=== PATIENT | female | born 1995 | race Caucasian/White ===

== ENCOUNTER → 2024-07-07 10:19 | Outpatient (CLI) | payer OTHER, SELFPAY | PROVIDERS: Visit Provider Physician Assistant | DX: R39.9 Unspecified symptoms and signs involving the genitourinary system (principal) | CPT/HCPCS: 87077; 87086; 87147 ==

== ENCOUNTER → 2024-08-09 11:03 | Outpatient (CLI) | payer OTHER, SELFPAY ==
[2024-08-09 14:34] LABS: Urine N gonorrhoeae NOT DETECTED
[2024-08-09 14:35] LABS: Urine Chlamydia NOT DETECTED
== END ==
LOC: LAB 11:05
PROVIDERS: PCP Nurse Practitioner; Visit Provider Student in an Organized Health Care Education/Training Program
DX: Z34.01 Encounter for supervision of normal first pregnancy, first trimester (principal)
CPT/HCPCS: 87491; 87591

== ENCOUNTER 2024-08-24 10:35 | Day surgery (SDC) | payer OTHER, SELFPAY ==
[2024-08-20 09:32] VITALS: BMI 32.1
--- NOTE | 2024-08-24 | PATH_ITS ---
[facility] Accession Number: [id number] No. of containers..01 Tissue . 01 Material submitted: . product of conception - PRODUCTS OF CONCEPTION . 01 Diagnosis: PRODUCTS OF CONCEPTION: Products of conception identified. Additional evaluation pending to assess for molar gestation; results will be reported as an addendum. MRV 08/30/2024 1615 Local . 01 Electronically signed: . Hiwot Easlye MD, Pathologist NPI- [id number] . 01 Gross description: . Received in formalin with two identifiers and products of conception, are multiple angulo spongy to membranous soft tissue fragments admixed with mucohemorrhagic material aggregating to 5.7 x 5.3 x 1.4 cm with no tissue identified. [employer] Milling Supervisor sections are submitted in A1-A2. ([id number]) /MRV 08/25/2024 1843 Local . 01 Pathologist provided ICD-10: O02.1 . 01 CPT . 356909 Specimen Comment: A courtesy copy of this report has been sent to [facility] Pathology Performed at: [address] [address], [place], [place] [id number] MD Kavin Barron MD Phone: [phone]
[2024-08-24] MEDS: LACTATED RINGERS 1,000 ML 42 ML IV (10:50)
[2024-08-24] MEDS: SCOPOLAMINE 1 PATCH TOP (10:55)
[2024-08-24] MEDS: FAMOTIDINE 20 MG/2 ML VIAL IV (10:57)
[2024-08-24 11:03] VITALS: BP 123/77; PULSE 97; RESP 17; TEMP 36.8; O2SAT 100; BMI 31.4
--- NOTE | 2024-08-24 11:45 | PM.GYNHP.1 ---
History of Present Illness History of Present Illness Reason for admission: missed Narrative: Abdulkadir Regan is a 29 year old female [id number] with diagnosed missed in clinic, desiring surgical management. She denies any vaginal bleeding. 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) Abnormal Pap smear of cervix Premature delivery Surgical History (Updated 07/26/24 @ 13:06 by Polly Jacques RN) [place] teeth removed (10/23/15) History of knee surgery (03/18/12) History of appendectomy (12/08/13) [place] teeth extracted (~2015) Family History (Updated 07/26/24 @ 13:17 by Polly Jacques RN) Mother Age: 63 Skin cancer Asthma Father Diabetes mellitus Hypertension Lung cancer Grandmother Dementia Breast cancer Grandfather Heart attack Hypertension Grandmother Colon cancer Dementia Breast cancer Stroke Son Age: 4y 6m Autism Eczema Allergies Social History marital status: number of children: 1 household members: spouse and children lives independently: Yes caregiver/support person: Yes housing: [facility] ([employer]) pets and animals: Yes (dogs) education level: college (bachelor's degree) occupational status: employed ([employer]) current occupational exposures/hazards: No special ernesto needs: No travel history: over 6 months ago seatbelt use: always water heater temp set < 120 deg: Yes working smoke detector in home: Yes fire extinguisher in home: Yes carbon monox detector in home: Yes firearms in home: No do you feel safe at home: Yes Smoking Status: Never smoker second hand exposure: No alcohol intake: former substance use type: marijuana (edibles, but not while /) during the past year weight has: increased > 10 lbs well-balanced diet: rarely or never daily servings fruits/ve-1 (1-2) caffeine: Yes (very conscious, max 120mg/day) Type(s) of exercise: walking and other (standing all day at work) Meds Home Medications and Allergies Home Medications ?Medication ?Instructions ?Recorded ?Confirmed ?Type certolizumab pegol 400 mg/2 mL 400 mg SUBCUT Q4W 07/21/24 08/24/24 History (200 mg/mL x2) subcutaneous syringe kit (Cimzia) gabapentin 300 mg capsule 300 mg PO DAILY 07/21/24 08/24/24 History [id number] 400 mcg-om3 35 mg-dha 25 tab PO 07/26/24 07/26/24 History mg-epa 5 mg-fish oil chewable tablet Allergies Allergy/AdvReac Type Severity Reaction Status Date / Time Sulfa (Sulfonamide Allergy Intermediate Swelling Verified 08/24/24 10:59 Antibiotics) of Lip/Tongue/Throat banana Allergy Mild ITCHING Verified 08/24/24 10:59 Review of Systems Review of Systems ROS: Yes All systems reviewed with the patient and are negative except as otherwise documented Exam Vital Signs (past 8 hours): - 08/24/24 11:03 Temperature 98.2 F Pulse Rate 97 H Respiratory Rate 17 Blood Pressure 123/77 Pulse Oximetry 100 Oxygen Delivery Method Room Air Oxygen Delivery Method Room Air Const General: healthy appearing, comfortable and No acute distress Resp Effort & Inspection: normal respiratory effort and able to speak in complete sentences Skin General: no rashes or lesions noted Neuro Cognition: normal cognition Speech: speech normal Extrem General: normal to inspection Psych Mood: congruent mood Affect: normal affect Assessment & Plan Assessment and plan (1) Missed : Status: Acute Assessment & Plan narrative: 29yo [id number] with diagnosed missed , here for surgical management with suction D&C. We reviewed postop expectations, as well as risk/benefits of the proposed procedure and signed the surgical consent today. -200mg PO doxycycline for ppx -plan for same day surgery Surgery consent We discussed the risks/benefits/alternatives to the proposed procedure, to include but not limited to: -risk of bleeding, requiring medications, blood products, or other procedures as indicated -risk of infection, requiring prolonged hospital stay or other procedures -risk of injury to other structures, including bowel, bladder, blood vessels, nerves, etc. which may also require additional procedures -risk of adverse reaction to anesthesia or medications -risk of venous thromboembolism and associated sequelae -risk of rare complications such as cardiac arrest, or extremely rarely, Patient is aware of the risks, and desires to proceed with planned surgical procedure. Time-Based Coding :: [20min] spent with patient and on the chart (including review of chart, obtaining history, exam, reviewing outside data, placing orders, documenting exam and treatment plan, and counseling patient) on [08/24/24].
[2024-08-24] MEDS: DOXYCYCLINE HYCLATE 100 MG TABLET 200 MG PO (11:48)
[2024-08-24] MEDS: ACETAMINOPHEN IV 1,000 MG/100 ML VIAL 400 MG IV (12:10)
--- NOTE | 2024-08-24 12:14 | SUR.OPER ---
Lithotomy on padded OR bed, head on pillow, arms secured on padded arm boards at <90 degrees abduction. Legs secured in padded yellow fins stirrups.
[2024-08-24] MEDS: SILVER NITRATE STICK 2 EACH TOP ×3 (12:20→12:23)
[2024-08-24 12:31] VITALS: BP 104/64; PULSE 89; RESP 13; TEMP 36.3; O2SAT 96
--- NOTE | 2024-08-24 12:31 | P.OP_ITS ---
Operative Date/Time/Diagnoses Date of procedure: 08/24/24 Time of procedure: 12:00 Pre-op diagnosis: Missed Post-op diagnosis: same Procedure & Clinicians Procedure: Suction dilation and curettage Same procedure as scheduled: Yes Indications: 29yo [id number] with missed , desiring surgical management. Surgeon: Shakila Taveras Click Yes if Unassisted: Yes Anesthesia Type: General Operative Notes Findings: Moderate amount of tissue obtained. Minimal uterine bleeding noted at the end of the case. Specimen(s): other (products of conception) Estimated Blood Loss (mL): 10 Blood products transfused: none Procedure in detail: The risks, benefits, indications and alternatives of the procedure were reviewed with the patient and informed consent was obtained. She received 200mg doxycycline PO preoperatively for prophylaxis. The pt was taken to the operating room where general anesthesia was obtained without difficulty. The pt was then placed in the low lithotomy position using gel-padded Juan Pablo Stirrups. SCDs were placed bilaterally for VTE prophylaxis. The pt was then prepped and draped in the sterile fashion. A sterile speculum was placed in the patient?s vagina and the cervix was visualized.? A single tooth tenaculum was used to grasp the anterior lip of the cervix. The cervix was then gently, serially dilated to a size 7mm Hegar dilator. A 7mm curved suction catheter was then introduced into the uterine cavity and gently advanced to the uterine fundus. The suction device was then activated to 60mmHg and the catheter was rotated to clear the uterus of products of conception. Several passes were performed with a moderate amount of tissue obtained. A gentle, sharp curettage was then performed until a gritty texture was noted. All tissue was sent to pathology for review. The single tooth tenaculum was then removed from the anterior lip of the cervix. The tenaculum sites were noted to be hemostatic with direct pressure and silver nitrate. All instruments were then removed from the patient?s vagina. At the completion of the case the sponge and needle counts were correct x 2. The patient tolerated the procedure well and was taken to the PACU in stable condi tion. Complications: none Post-operative Condition: stable Disposition: PACU Plan for aftercare: Discharge to home once meeting discharge criteria.
[2024-08-24 12:36] VITALS: BP 98/56; PULSE 89; RESP 14; O2SAT 96
[2024-08-24 12:40] VITALS: BP 103/62; PULSE 79; RESP 15; O2SAT 97
[2024-08-24 12:46] VITALS: BP 106/68; PULSE 78; RESP 15; O2SAT 97
[2024-08-24 12:53] VITALS: BP 111/84; PULSE 81; RESP 13; TEMP 36.4; O2SAT 98
== END 2024-08-24 13:55 | disposition home or self-care (01) ==
PROVIDERS: PCP Nurse Practitioner; Referring Provider Student in an Organized Health Care Education/Training Program; Visit Provider Student in an Organized Health Care Education/Training Program
PROC: (CPT 58120; principal; 2024-08-24 12:00)
DX: O02.1 Missed abortion (principal)
CPT/HCPCS: 59820; J0131; J1100; J1885; J2250; J2405; J2704; J3010

== ENCOUNTER 2024-08-26 20:01 | Emergency (ER) | payer OTHER, SELFPAY ==
--- NOTE | 2024-08-26 20:21 | EKG_ITS ---
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
[2024-08-26 20:23] VITALS: BP 138/71; PULSE 85; RESP 16; TEMP 36.5; O2SAT 99; BMI 32.1
--- NOTE | 2024-08-26 20:29 | DI.RAD.S_ITS ---
PROCEDURE: XR CHEST 1V INDICATIONS: chest pain TECHNIQUE: One view of the chest was acquired. COMPARISON: None. FINDINGS AND IMPRESSION: No dense airspace disease or pleural effusions on this single view study. Normal heart size. Unremarkable osseous structures. Dictated by: Filiberto Galloway M.D. on 08/26/2024 at 21:00 Approved by: Filiberto Galloway M.D. on 08/26/2024 at 21:01
[2024-08-26 21:01] LABS: Add Manual Diff / Slide Review NO; Basophils Absolute Auto 100 /uL (0-100); Basophils Percent Auto 0.6 % (0-2); Eosinophils Absolute Auto 300 /uL (0-450); Eosinophils Percent Auto 2.4 % (2-4); Hematocrit 38.1 % (36-46); Lymphocytes Absolute Auto 4200 /uL (1100-4500); Lymphocytes Percent Auto 38.1 % (25-40); Mean Corpuscular HGB Conc 34.1 % (30-36); Mean Corpuscular Hemoglobin 30.5 PG (26-34); Mean Corpuscular Volume 89.5 fL (80-100); Monocytes Absolute Auto 600 /uL (0-900); Monocytes Percent Auto 5.6 % (3-14); Neutrophils Absolute Auto 5900 /uL (1500-7000); Neutrophils Percent Auto 53.3 % (50-75); Platelet Count 250 X10^3/uL (150-400); Red Blood Cell Count 4.26 X10^6/uL (4.0-5.2); Red Cell Distribution Width 13.4 % (11.6-14.8)
[2024-08-26 21:02] LABS: Alanine Aminotransferase 18 IU/L (<35); Albumin 4.2 g/dL (3.5-5.0); Albumin Globulin Ratio 1.4 (1.0-2.8); Alkaline Phosphatase 69 U/L (38-126); Aspartate Aminotransferase 23 IU/L (14-36); BUN Creatinine Ratio 24.3 (6-22); Bilirubin Total 0.4 mg/dL (0.2-1.3); Blood Urea Nitrogen 17 mg/dL (7-17); Carbon Dioxide 26 mmol/L (22-32); Chloride 105 mmol/L (98-107); Creatine Kinase 48 U/L (30-135); Estimated Glomerular Filt Rate > 60 mL/min (>60); Glucose 99 mg/dL (70-99); HEMOLYSIS < 15 (0-50); Lipase 55 U/L (23-300); Potassium 3.8 mmol/L (3.4-5.1); Sodium 138 mmol/L (137-145); Total Protein 7.2 g/dL (6.3-8.2)
[2024-08-26 21:14] LABS: Troponin I < 0.012 ng/mL (0.01-0.034)
[2024-08-26 22:11] VITALS: BP 116/74; PULSE 78; RESP 20; TEMP 36.6; O2SAT 100
[2024-08-26 23:21] VITALS: BP 115/73; PULSE 70; RESP 16; O2SAT 100
[2024-08-26 23:51] LABS: Troponin I < 0.012 ng/mL (0.01-0.034)
[2024-08-27 01:22] VITALS: BP 120/68; PULSE 74; RESP 16; O2SAT 100
--- NOTE | 2024-08-27 02:39 | ED.CHESTPAIN ---
HPI - Chest Pain General Chief Complaint: Chest Pain Stated Complaint: Chest pain dnc x 2 days ago Time Seen by Provider: 08/27/24 02:12 Source: patient Mode of arrival: Ambulatory Limitations: no limitations History of Present Illness HPI narrative: 29-year-old female complaint of chest pain started at 9:30 a.m. described as squeezing. Episodes last about 2 minutes and feel short of breath during the episode. Has been all day eating seems to make it worse but does not have any funny taste in her mouth. Can sometimes be worse with deep inhalation but not always. No shortness a breath at baseline. No fevers. No nausea or vomiting. No syncope. Some mild constipation but having bowel movements no urinary symptoms no swelling in extremities. Patient has had Advil 800 mg without any improvement. Had a D&C on Friday. 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 Describes it allergy to sulfa. States prior knee surgery and had prior D&C. Does not take any estrogen. No tobacco, alcohol or recreational drugs. She does follow up with rheumatology Related Data Home Medications ?Medication ?Instructions ?Recorded ?Confirmed certolizumab pegol 400 mg/2 mL 400 mg SUBCUT Q4W 07/21/24 08/24/24 (200 mg/mL x2) subcutaneous syringe kit (Cimzia) gabapentin 300 mg capsule 300 mg PO DAILY 07/21/24 08/24/24 [id number] 400 mcg-om3 35 mg-dha 25 tab PO 07/26/24 07/26/24 mg-epa 5 mg-fish oil chewable tablet Allergies Allergy/AdvReac Type Severity Reaction Status Date / Time Sulfa (Sulfonamide Allergy Intermediate Swelling Verified 08/26/24 20:23 Antibiotics) of Lip/Tongue/Throat banana Allergy Mild ITCHING Verified 08/26/24 20:23 Review of Systems Review of Systems ROS Unobtainable: All systems reviewed & are unremarkable except as noted in HPI and below Patient History Medical History anxiety 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) Abnormal Pap smear of cervix Premature delivery Surgical History [place] teeth removed (10/23/15) History of knee surgery (03/18/12) History of appendectomy (12/08/13) [place] teeth extracted (~2015) Family History Mother Age: 63 Skin cancer Asthma Father Diabetes mellitus Hypertension Lung cancer Grandmother Dementia Breast cancer Grandfather Heart attack Hypertension Grandmother Colon cancer Dementia Breast cancer Stroke Son Age: 4y 6m Autism Eczema Allergies Social History marital status: number of children: 1 household members: spouse and children lives independently: Yes caregiver/support person: Yes housing: condominium ([facility] [place]) pets and animals: Yes (dogs) education level: college (bachelor's degree) occupational status: employed ([employer]) current occupational exposures/hazards: No special ernesto needs: No travel history: over 6 months ago seatbelt use: always water heater temp set < 120 deg: Yes working smoke detector in home: Yes fire extinguisher in home: Yes carbon monox detector in home: Yes firearms in home: No do you feel safe at home: Yes Smoking Status: Never smoker second hand exposure: No alcohol intake: former substance use type: marijuana (edibles, but not while /) during the past year weight has: increased > 10 lbs well-balanced diet: rarely or never daily servings fruits/ve-1 (1-2) caffeine: Yes (very conscious, max 120mg/day) Type(s) of exercise: walking and other (standing all day at work) Smoking Status: Never smoker Exam Narrative Exam Narrative: GENERAL: Alert and oriented x three, female in mild distress HEENT: Head normocephalic, atraumatic, EOMI, pupils reactive, face symmetric, moist mucous membranes NECK: Supple, full range of motion CARDIOVASCULAR: Regular rate and rhythm without murmurs, rubs or gallops. No reproducible chest pain. No JVD. No edema bilateral lower extremities. RESPIRATORY: Breath sounds equal bilaterally, no wheezes rales or rhonchi. No tachypnea. Patient's speaks in full sentences. ABDOMEN: Soft, nontender. Normoactive bowel sounds all 4 quadrants. No guarding or rebound, rigidity, no mass : No CVA tenderness EXTREMITIES: Normal range of motion, no clubbing or edema. Neurovascularly intact NEUROLOGICAL: Cranial nerves II through XII grossly intact. Moving all extremities SKIN: Warm, dry, no petechiae, no rashes or lesions. Initial Vital Signs Initial Vital Signs: Vital Signs Temperature 97.7 F 08/26/24 20:23 Pulse Rate 85 08/26/24 20:23 Respiratory Rate 16 08/26/24 20:23 Blood Pressure 138/71 08/26/24 20:23 Pulse Oximetry 99 08/26/24 20:23 Oxygen Delivery Method Room Air 08/26/24 20:23 Course Orders Ordered: ED Orders 08/26/24 23:23 Troponin I Stat 08/27/24 02:51 CT angio chest PE protocol Stat Discontinued Medications Aspirin (Aspirin 81 Mg Chew Tab) 324 mg PO NOW ONE Stop: 08/26/24 20:29 Last Admin: 08/27/24 03:43 Dose: Not Given Documented By: HENRIETTA Al Hydrox/Mg Hydrox/Simethicone 20 ml/ Lidocaine HCl 15 ml 0 ml PO NOW ONE Stop: 08/27/24 02:52 Last Admin: 08/27/24 03:04 Dose: 35 ml Documented By: HENRIETTA Sodium Chloride (Normal Saline 0.9%) 1,000 mls @ 150 mls/hr IV CONT JENISE Last Admin: 08/27/24 03:43 Dose: Not Given Documented By: HENRIETTA Vital Signs Vital signs: Vital Signs - 8 hr 08/27/24 01:22 08/27/24 04:18 Pulse Rate 74 85 Respiratory Rate 16 20 Blood Pressure 120/68 116/73 Pulse Oximetry 100 98 Oxygen Delivery Method Room Air Room Air MDM - Chest Pain Lab Data 08/26/24 20:39 08/26/24 20:39 Labs: Lab Results 08/26/24 08/26/24 Range/Units 20:39 23:23 WBC 11.0 (4.5-11.0) X10^3/uL RBC 4.26 (4.0-5.2) X10^6/uL Hgb 13.0 (12.0-16.0) g/dL Hct 38.1 (36-46) % MCV 89.5 (80-100) fL MCH 30.5 (26-34) PG MCHC 34.1 (30-36) % RDW 13.4 (11.6-14.8) % Plt Count 250 (150-400) X10^3/uL Neut % (Auto) 53.3 (50-75) % Lymph % (Auto) 38.1 (25-40) % [place] % (Auto) 5.6 (3-14) % Eos % (Auto) 2.4 (2-4) % Baso % (Auto) 0.6 (0-2) % Neut # (Auto) 5900 (9263-2320) /uL Lymph # (Auto) 4200 (7481-2487) /uL [place] # (Auto) 600 (0-900) /uL Eos # (Auto) 300 (0-450) /uL Baso # (Auto) 100 (0-100) /uL Sodium 138 (137-145) mmol/L Potassium 3.8 (3.4-5.1) mmol/L Chloride 105 (98-107) mmol/L Carbon Dioxide 26 (22-32) mmol/L BUN 17 (7-17) mg/dL Creatinine 0.70 (0.52-1.04) mg/dL Estimated GFR > 60 (>60) mL/min BUN/Creatinine Ratio 24.3 H (6-22) Glucose 99 (70-99) mg/dL Calcium 9.0 (8.4-10.2) mg/dL Total Bilirubin 0.4 (0.2-1.3) mg/dL AST 23 (14-36) IU/L ALT 18 (<35) IU/L Alkaline Phosphatase 69 (38-126) U/L Total Creatine Kinase 48 (30-135) U/L Troponin I < 0.012 < 0.012 (0.01-0.034) ng/mL Total Protein 7.2 (6.3-8.2) g/dL Albumin 4.2 (3.5-5.0) g/dL Globulin 3.0 (1.7-4.1) g/dL Albumin/Globulin Ratio 1.4 (1.0-2.8) Lipase 55 (23-300) U/L ECG Data Attestation: I personally reviewed and interpreted this ECG as follows: Prior ECG tracings: not available for review Interpretation: Sinus rhythm rate of 79 OK 140 QRS of 94 QTC of 435, no acute ST elevation depression. No prior for comparison. [facility] Narrative Medical decision making narrative: Sinus rhythm, no acute ST changes CBC is normal range, chemistries show no acute changes troponins less than 0.012 initially and on repeat. Chest x-ray shows no acute change CTA shows normal heart size, RV LV ratio is normal thoracic aorta normal caliber no pulmonary artery filling defects. Distal branches not well evaluated due to bolus timing. Visualized thyroid and mediastinum are unremarkable. No consolidation or effusion. Visualized upper abdomen is unremarkable. No acute fractures. No evidence of PE your heart strain. No acute definite process. A 29-year-old female describes squeezing chest pain little bit worse when she was eating but also some pleuritic component. Vitals are appropriate initial cardiac workup is negative. Patient does have risk factors with a history of autoimmune disease and recent D and C in the past week discussed D-dimer versus CT angio to rule out pulmonary embolism. Patient prefers to move forward with CT angio. Received GI cocktail, patient states not immediate improvement but has had improvement quite a bit as time has progressed. Reviewed findings from today, discussed do not suspect acute cardiac event, pericarditis is on differential but patient does not have EKG or lab findings changing. Pulmonary embolism unlikely with a negative CT angio, pancreatitis or other acute intra-abdominal processes less likely. Discussed could be related to a costochondritis with her history of autoimmune disorder and discussed return precautions and follow up. Discharge Plan Departure Patient Disposition: Home Clinical Impression: Chest pain Instructions: DI for Chest Pain Activity Restrictions/Additional Instructions: Follow up for recheck. If you find that the GI cocktail was helpful, you can try Pepcid 40 mg daily [id number] for 30 days to see if this improves your symptoms. If not you can try acetaminophen up to a 1000 mg and/or ibuprofen up to 600 mg every 6 hours. Please return for new or worsening symptoms, new chest pain, increasing shortness of breath, lightheadedness or passing out, swelling of your extremities, persistent vomiting, fevers or other new or concerning changes. Prescriptions: No Action Cimzia 400 mg/2 mL (200 mg/mL x 2) syringe kit 400 mg SUBCUT Q4W Patient Comments: Prescribed by [employer] consultant @[facility], recommended by that provider as the best option for . gabapentin 300 mg capsule 300 mg PO DAILY [id number] oil 400 mcg-35 mg -25 mg-5 mg tablet,chewable PO Referrals: Shira Thomas ARNP [Primary Care Provider, Medical] Stand Alone Forms: Patient Portal/API
--- NOTE | 2024-08-27 02:51 | DI.CT.S_ITS ---
PROCEDURE: CT ANGIO CHEST PE PROTOCOL INDICATIONS: chest pain, hx autoimmune disease, recent surgery TECHNIQUE: After the administration of intravenous contrast, 2 mm thick sections acquired from the pulmonary apices to the posterior costophrenic angles. 3-dimensional maximum intensity projection (MIP) coronal and sagittal reformats were then acquired through the thorax. For radiation dose reduction, the following was used: automated exposure control, adjustment of mA and/or kV according to patient size. COMPARISON: [facility], CR, XR CHEST 1V, 08/26/2024, 20:30. FINDINGS: Image quality: Diagnostic. Pulmonary arteries: Pulmonary arteries are normal in size, and demonstrate no intraluminal filling defects to suggest central pulmonary embolism. Lower Neck: No enlarged lymph nodes. Thyroid: No thyroid nodules which require sonographic follow up, per consensus guidelines. Axillae: No enlarged lymph nodes. Chest Wall: Unremarkable. Bones: No suspicious osseous lesion. Lungs and Pleura: No pneumothorax or pleural effusions. No consolidation or suspicious nodules. Heart: Heart size is normal. No pericardial effusion. Thoracic Vessels: No aortic aneurysm. No aortic dissection. Mediastinum and Anat: No enlarged lymph nodes. Esophagus: No wall thickening. No hiatal hernia. Upper Abdomen: Visualized upper abdomen solid organs and bowel loops appear normal. IMPRESSION: 1. No pulmonary embolism. 2. No acute airspace opacity. This report is concordant with the overnight preliminary interpretation. Dictated by: Portillo Tolentino M.D. on 08/27/2024 at 8:18 Approved by: Portillo Tolentino M.D. on 08/27/2024 at 8:22
[2024-08-27] MEDS: MAG HYDROX/ALUMINUM/SIMETH SUS 20 ML, LIDOCAINE VISCOUS 2% 15 ML PO (03:04)
--- NOTE | 2024-08-27 03:07 | PC.NURSE ---
Pt ambulatory to imaging with software technical lead
[2024-08-27 04:18] VITALS: BP 116/73; PULSE 85; RESP 20; O2SAT 98
== END 2024-08-27 04:19 | disposition home or self-care (01) ==
PROVIDERS: Emergency Provider Emergency Medicine; PCP Nurse Practitioner
DX: R07.9 Chest pain, unspecified (principal)
CPT/HCPCS: 36415; 71045; 71275; 80053; 82550; 83690; 84484; 85025; 93005; 99284; Q9967

== ENCOUNTER → 2025-02-24 10:31 | Outpatient (CLI) | payer OTHER, SELFPAY ==
[2025-02-24 11:11] LABS: Add Manual Diff / Slide Review NO; Hematocrit 39.6 % (36-46); Hemoglobin 13.7 g/dL (12.0-16.0); Lymphocytes Absolute Auto 2200 /uL (1100-4500); Mean Corpuscular HGB Conc 34.6 % (30-36); Mean Corpuscular Hemoglobin 31.0 PG (26-34); Mean Corpuscular Volume 89.5 fL (80-100); Platelet Count 234 X10^3/uL (150-400)
[2025-02-24 11:40] LABS: Natera Collection Specimen Collected
[2025-02-24 12:40] LABS: Urine N gonorrhoeae NOT DETECTED
[2025-02-24 13:28] LABS: Urine Chlamydia NOT DETECTED
[2025-02-24 15:09] LABS: Hepatitis B Surface Antigen NEGATIVE s/c (NEGATIVE)
[2025-02-24 15:16] LABS: HIV 1 & 2 Ab/Ag 4th Gen Combo NEGATIVE (NEGATIVE)
[2025-02-24 15:47] LABS: Hep C Virus Ab w/Reflex Quant NEGATIVE s/c (NEGATIVE)
== END ==
PROVIDERS: Obstetrics & Gynecology; PCP Nurse Practitioner; Referring Provider Student in an Organized Health Care Education/Training Program; Visit Provider Student in an Organized Health Care Education/Training Program
DX: Z34.81 Encounter for supervision of other normal pregnancy, first trimester (principal); Z36.0 Encounter for antenatal screening for chromosomal anomalies
CPT/HCPCS: 36415; 80055; 86695; 86787; 86803; 86850; 86900; 86901; 87086; 87389; 87491; 87591